=== PATIENT | male | born 1995 | race Caucasian/White ===

== ENCOUNTER 2022-11-30 09:26 | Emergency (ER) | payer SELFPAY ==
--- OUTSIDE RECORDS SUMMARY | 2022-11-30 09:32 | XMS REPORT | Continuity of Care Document ---
:1995 Author Organization [facility] t Address [address] [place] [address] Care Team Providers Name Role Phone PCP, PATIENT DOES NOT HAVE A Primary Care Physician UnavailANDREW Torres Attending Clinician Unavailable ANDREW ESPINOSA Attending Clinician Unavailable Andrew Espinosa DO Attending Clinician Iris Villegas Attending Clinician Unavailable JAVON VIDAL Attending Clinician Unavailable Javon Vidal MD Attending Clinician Chirag Gallegos MD Attending Clinician CHIRAG GALLEGOS Attending Clinician Unavailable Marcos Davis MD Attending Clinician Doctor Unassigned, [place] Attending Clinician Unavailable Jung Wallace MD Attending Clinician Dalia Morgan MD Attending Clinician Iris Villegas Admitting Clinician Unavailable ANDREW ESPINOSA Admitting Clinician Unavailable Dalia Morgan MD Admitting Clinician Payers Payer Name Policy Type Policy Number Effective Date Expiration Date [employer] [facility] [employer] GENER[employer] [id number] 2019 00:00:00 Problems Condition Condition Condition Status Onset Resolution Last Treating Co mments Source Name Details Category Date Date Treatment Clinician Date Drug abuse Drug abuse Disease Active U nivrust 07-04 ity of 00:00: [place] 00 Medical Branch Rhabdomyol Rhabdomyol Disease Active U nivers ysis ysis 8 ity of 00:00: [place] [facility] Aspiration Aspiration Disease Active U nivers pneumonia pneumonia 07-03 ity of 00:00: [place] [facility] Obesity Obesity Disease Active Univers (BMI (BMI 8- ity of 30-39.9) 30-39.9) 00:00: [place] [facility] JAVIER (acute JAVIER (acute Disease Active U nivers kidney kidney 8 ity of injury) injury) 00:00: [place] [id number] Medical Branch Adjustment Adjustment Disease Active 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 11-30 ity of [place] mixed [place] disturbanc disturbanc 00 Me dical e of e of Branch emotions emotions and and conduct conduct Allergies, Adverse Reactions, Alerts Allergy Allergy Status Severity Reaction(s) Onset Inactive Treating Comm ents Source Name Type Date Date Clinician No Known DA Active U [facility] Allergie 06-05 [place] 00:00: e 00 [facility] Azithrom Propensi Active Nausea Univer s ycin ty to and/or 07-04 ity of adverse Vomiting 00:00: [place] reaction 00 Medical s Branch AZITHROM DRUG Active N/V Univers YCIN INGREDI 07-04 ity of 00:00: [address] Social History Social Habit Start Date Stop Date Quantity Comments Source History of tobacco Cigarette Smoker University of use [facility] Tobacco Comment no one smokes in Uni versity of the home [facility] Exposure to 2022-08-03 2022-08-13 Not sure [facility] SARS-CoV-2 (event) 00:00:00 07:51:00 [facility] Alcohol intake 2015-10-12 2015-10-12 Current University of 00:00:00 00:00:00 non-drinker of [facility] alcohol Branch (finding) Tobacco use and 2013-01-20 2013-01-20 Smokeless Universit y of exposure 00:00:00 00:00:[address] tobacco non-user [facility] dical [place] Cigarettes smoked 2013-01-20 2013-01-20 Univers ity of current (pack per 00:00:00 00:00:00 [place] ) - Reported Branch [facility] 1995 [facility]00 [facility] Smoking Status Start Date Stop Date Source Occasional tobacco smoker 2013-01-20 00:00:[address] [facility] Medications Ordered Filled Start Stop Current Ordering Indication Dosage Frequency Signature Comments Components Source Medication Medication Date Date Medication? Clinician (SIG) Name Name famotidine No 20mg 20 mg, Univ ers (PEPCID 08-13 Slow IV ity of (PF)) 14:15: 13:22 Push, [place] injection 00 :00 ONCE, 1 Medical 20 mg dose, On Branch Uyen 08/13/22 at 0915, Routine NaCl 0.9% No 2000mL at 999 Uni vers (NS) bolus 08-13 mL/hr, ity of infusion 14:00: 14:00 2,000 mL, [place] 2,000 mL 00 :00 IV Medical Infusion, Branch ONCE, 1 dose, On Uyen 08/13/22 at 0900, RASHEED ondansetron 2021- No 4mg 4 mg, Slow Univers (ZOFRAN 08-13 IV Push, ity of (PF)) 13:30: 13:18 ONCE, 1 [place] injection 4 00 :00 dose, On Medi amor mg U[place] Branch 08/13/22 at 0830, ARSHEED maalox:diph 2021- No 15mL 15 mL, Uni vers enhydrAMINE 08-13 Oral, ity of :lidocaine 13:30: 13:22 ONCE, 1 [place] 2 % viscous 00 :00 dose, On Medi amor 1:1:1 [place] Branch (FIRST-MOUT 08/13/22 at [facility]) 0830, oral Routine suspension 15 mL ondansetron Yes [id number] 4mg Take 1 Univers (ZOFRAN) 4 -15 tablet by ity of mg tablet 00:00: mouth [place] 00 every 6 Medical (six) Branch hours as needed for Nausea and Vomiting (N/V). naloxone 2021- No .4mg 0.4 mg, Unive rs (NARCAN) 4-23 04-23 Slow IV ity of injection 02:15: 00:56 Push, [place] 0.4 mg 00 :00 ONCE, 1 Medical dose, On Branch 03/20/22 at 2115, Routine acetaminoph 2018- No 650mg 650 mg, U nivers en 07-05 Oral, ONCE ity of (TYLENOL) 15:45: 15:04 NOW, 1 [place] tablet 650 00 :00 dose, Wed Medi amor mg 07/05/19 at Branch 1045, Routine acetaminoph 2018- No 650mg 650 mg, U nivers en 07-05 Oral, ity of (TYLENOL) 00:40: 01:20 ONCE, 1 [place] tablet 650 00 :00 dose, Wed Medi amor mg 07/04/19 at Branch 1945, Routine amoxicillin 2018- No [id number] 500mg Take 1 Univers -pot 07-05 tablet by ity of clavulanate 00:00: 04:59 mouth 3 [place] 500 mg 00 :00 (three) Medical 500-125 mg times Branch tablet daily for 5 days. D5W 0.9% Yes 1000mL at 200 Unive rs NaCl (NS) 8-06 mL/hr, ity of IV infusion 13:45: 1,000 mL, [place] 1,000 mL 00 IV Medical Infusion, Branch CONTINUOUS , Starting e 07/04/19 at 0845, Until Discontinu ed, Routine D5W 0.9% 2018- No 1000mL at 100 Univ ers NaCl (NS) 8- 08-06 mL/hr, ity of IV infusion 12:15: 13:41 1,000 mL, [place] 1,000 mL 00 :07 IV Medical Infusion, Branch CONTINUOUS , Starting 07/04/19 at 0715, Until 07/04/19 at 0841, Routine D5W 0.9% 2018- No 1000mL at 200 Univ ers NaCl (NS) 8- 08-06 mL/hr, ity of IV infusion 11:30: 12:02 1,000 mL, [place] 1,000 mL 00 :21 IV Medical Infusion, Branch CONTINUOUS , Starting 07/04/19 at 0630, Until 07/04/19 at 0702, Routine amoxicillin 2019-0 Yes 500mg 500 mg, Un sabine -pot 806 Oral, TID, ity of clavulanate 01:00: First dose [place] 500 mg 00 on Wed Medical (AUGMENTIN 07/03/19 at Bran ch 500) 2000, 500-125 mg Until tablet 500 Discontinu mg ed, RASHEED
Re ason for Anti-Infec tive: Documented Infection< br>Documen sujata Infection Site: Respirator y
Durat ion of Therapy: 7 days D5W 0.9% 2019- No 1000mL at 150 Univ ers NaCl (NS) 8- 08-06 mL/hr, ity of IV infusion 00:45: 11:26 1,000 mL, [place] 1,000 mL 00 :49 IV Medical Infusion, Branch CONTINUOUS , Starting Wed07/03/19 at 1945, Until Wed07/04/19 at 0626, Routine NaCl 0.9% 2018- No 1000mL at 999 Uni vers (NS) bolus 805 08-05 mL/hr, ity of infusion 17:00: 16:20 1,000 mL, [place] 1,000 mL 00 :00 IV Medical Infusion, Branch ONCE, 1 dose, Wed07/03/19 at 1200, STAT NaCl 0.9% 2018- No 1000mL at 999 Uni vers (NS) bolus 8-05 08-05 mL/hr, ity of infusion 15:30: 15:56 1,000 mL, [place] 1,000 mL 00 :00 IV Medical Infusion, Branch ONCE, 1 dose, Wed07/03/19 at 1030, STAT propranolol 2014-11 Yes [id number] 80mg Take 1 Cap Univers [place] (INDERAL 1-13 by mouth ity of [place]) 80 mg 00:00: daily. [place] 24 hr Medical capsule Branch propranolol 2014-11 Yes [id number] 80mg Take 1 Cap Univers [place] (INDERAL 1-13 by mouth ity of [place]) 80 mg 00:00: daily. [place] hr Medical capsule Branch propranolol 2014-11 Yes [id number] 80mg Take 1 Cap Univers [place] (INDERAL 1-13 by mouth ity of [place]) 80 mg 00:00: daily. [place] 24 hr Medical capsule Branch propranolol 2014-11 Yes [id number] 80mg Take 1 Cap Univers [place] (INDERAL 1-13 by mouth ity of [place]) 80 mg 00:00: daily. [place] 24 hr 00 [facility] capsule Branch propranolol 2014- Yes [id number] 80mg Take 1 Cap Univers [place] (INDERAL 1-13 by mouth ity of [place]) 80 mg 00:00: daily. [place] 24 hr 00 [facility] capsule Branch propranolol 2014- Yes [id number] 80mg Take 1 Cap Univers [place] (INDERAL 1-13 by mouth ity of [place]) 80 mg 00:00: daily. [place] 24 hr 00 [facility] Branch Immunizations Ordered Immunization Filled Immunization Date Status Commen ts Source Name Name Chickenpox Disease 2008-07-10 Completed Univer sity of 00:00:00 [facility] Meningococcal 2008-07-10 Completed University of Polysaccharide 00:00:00 [place] Medi amor (groups A, C, Y and Branc h W-135) conjugate vaccine (MCV4P) Chickenpox Disease 2008-07-10 Completed Univer sity of 00:00:00 [facility] Meningococcal 2008-07-10 Completed University of Polysaccharide 00:00:00 [place] Medi amor (groups A, C, Y and Branc h W-135) conjugate vaccine (MCV4P) Chickenpox Disease 2008-07-10 Completed Univer sity of 00:00:00 [facility] Meningococcal 2008-07-10 Completed University of Polysaccharide 00:00:00 [place] Medi amor (groups A, C, Y and Branc h W-135) conjugate vaccine (MCV4P) Chickenpox Disease 2008-07-10 Completed Univer sity of 00:00:00 [facility] Meningococcal 2008-07-10 Completed University of Polysaccharide 00:00:00 [place] Medi amor (groups A, C, Y and Branc h W-135) conjugate vaccine (MCV4P) Chickenpox Disease 2008-07-10 Completed Univer sity of 00:00:00 [facility] Meningococcal 2008-07-10 Completed University of Polysaccharide 00:00:00 [place] Medi amor (groups A, C, Y and Branc h W-135) conjugate vaccine (MCV4P) Chickenpox Disease 2008-07-10 Completed Univer sity of 00:00:00 [facility] Meningococcal 2008-07-10 Completed University of Polysaccharide 00:00:00 [place] Medi amor (groups A, C, Y and Branc h W-135) conjugate vaccine (MCV4P) HEPATITIS A 2006-06-18 Completed University of 00:00:00 [facility] Branch Tdap 2006-06-18 Completed University of 00:00:00 [facility] HEPATITIS A 2006-06-18 Completed University of 00:00:00 [place] [facility] Tdap 2006-06-18 Completed University of 00:00:00 [facility] HEPATITIS A 2006-06-18 Completed University of 00:00:00 [place] [facility] Tdap 2006-06-18 Completed University of 00:00:00 [facility] Branch HEPATITIS A 2006-06-18 Completed University of 00:00:00 [place] [facility] TDAP 2006-06-18 Completed University of 00:00:00 [facility] Branch HEPATITIS A 2006-06-18 Completed University of 00:00:00 [place] [facility] TDAP 2006-06-18 Completed University of 00:00:00 [facility] HEPATITIS A 2006-06-18 Completed University of 00:00:00 [facility] Tdap 2006-06-18 Completed University of 00:00:00 [facility] HEPATITIS A 2004-06-19 Completed University of 00:00:00 [facility] PPD (TB) 2004-06-19 Completed University of 00:00:00 [facility] HEPATITIS A 2004-06-19 Completed University of 00:00:00 [facility] PPD (TB) 2004-06-19 Completed University of 00:00:00 [facility] HEPATITIS A 2004-06-19 Completed University of 00:00:00 [facility] PPD (TB) 2004-06-19 Completed University of 00:00:00 [facility] HEPATITIS A 2004-06-19 Completed University of 00:00:00 [facility] PPD (TB) 2004-06-19 Completed University of 00:00:00 [facility] HEPATITIS A 2004-06-19 Completed University of 00:00:00 [facility] PPD (TB) 2004-06-19 Completed University of 00:00:00 [facility] DTAP 1998-10-10 Completed University of 00:00:00 [facility] MMR 1998-10-10 Completed University of 00:00:00 [facility] Polio (IPV/OPV) 1998-10-10 Completed Universit y of 00:00:00 [facility] DTAP 1998-10-10 Completed University of 00:00:00 [facility] MMR 1998-10-10 Completed University of 00:00:00 [facility] Polio (IPV/OPV) 1998-10-10 Completed Universit y of 00:00:00 [facility] DTAP 1998-10-10 Completed University of 00:00:00 [facility] MMR 1998-10-10 Completed University of 00:00:00 [facility] Polio (IPV/OPV) 1998-10-10 Completed Universit y of 00:00:00 [facility] DTAP 1998-10-10 Completed University of 00:00:00 [facility] MMR 1998-10-10 Completed University of 00:00:00 [facility] Polio (IPV/OPV) 1998-10-10 Completed Universit y of 00:00:00 [facility] DTAP 1998-10-10 Completed University of 00:00:00 [facility] MMR 1998-10-10 Completed University of 00:00:00 [facility] Polio (IPV/OPV) 1998-10-10 Completed Universit y of 00:00:00 [facility] DTAP 1998-10-10 Completed University of 00:00:00 [facility] MMR 1998-10-10 Completed University of 00:00:00 [facility] Polio (IPV/OPV) 1998-10-10 Completed Universit y of 00:00:00 [facility] DTAP 1997-03-05 Completed University of 00:00:00 [facility] HIB 4 Dose Schedule 1997-03-05 Completed Unive rsity of 00:00:00 [facility] Polio (IPV/OPV) 1997-03-05 Completed Universit y of 00:00:00 [facility] DTAP 1997-03-05 Completed University of 00:00:00 [facility] HIB 4 Dose Schedule 1997-03-05 Completed Unive rsity of 00:00:00 [facility] Polio (IPV/OPV) 1997-03-05 Completed Universit y of 00:00:00 [facility] DTAP 1997-03-05 Completed University of 00:00:00 [facility] HIB 4 Dose Schedule 1997-03-05 Completed Unive rsity of 00:00:00 [facility] Polio (IPV/OPV) 1997-03-05 Completed Universit y of 00:00:00 [facility] DTAP 1997-03-05 Completed University of 00:00:00 [facility] HIB 4 Dose Schedule 1997-03-05 Completed Unive rsity of 00:00:00 [facility] Polio (IPV/OPV) 1997-03-05 Completed Universit y of 00:00:00 [facility] DTAP 1997-03-05 Completed University of 00:00:00 [facility] HIB 4 Dose Schedule 1997-03-05 Completed Unive rsity of 00:00:00 [facility] Polio (IPV/OPV) 1997-03-05 Completed Universit y of 00:00:00 [facility] DTAP 1997-03-05 Completed University of 00:00:00 [facility] HIB 4 Dose Schedule 1997-03-05 Completed Unive rsity of 00:00:00 [facility] Polio (IPV/OPV) 1997-03-05 Completed Universit y of 00:00:00 [facility] MMR 1996-01-10 Completed University of 00:00:00 [facility] 1996-01-10 Completed University of 00:00:00 [facility] 1996-01-10 Completed University of 00:00:00 [facility] 1996-01-10 Completed University of 00:00:00 [facility] 1996-01-10 Completed University of 00:00:00 [facility] 1996-01-10 Completed University of 00:00:00 [facility] Varicella 1995-10-08 Completed University of (varivax)(chicken 00:00:00 [place] M edical pox) Branch Varicella 1995-10-08 Completed University of (varivax)(chicken 00:00:00 [place] M [facility]ical pox) Branch Varicella 1995-10-08 Completed University of (varivax)(chicken 00:00:00 [place] M edical pox) Branch Varicella 1995-10-08 Completed University of (varivax)(chicken 00:00:00 [place] M edical pox) Branch Varicella 1995-10-08 Completed University of (varivax)(chicken 00:00:00 [place] M edical pox) Branch Varicella 1995-10-08 Completed University of (varivax)(chicken 00:00:00 [place] M edical pox) Branch DTP 1995-06-09 Completed University of 00:00:00 [facility] HIB 4 Dose Schedule 1995-06-09 Completed Unive rsity of 00:00:00 [facility] Polio (IPV/OPV) 1995-06-09 Completed Universit y of 00:00:00 [facility] DTP 1995-06-09 Completed University of 00:00:00 [facility] HIB 4 Dose Schedule 1995-06-09 Completed Unive rsity of 00:00:00 [facility] Polio (IPV/OPV) 1995-06-09 Completed Universit y of 00:00:00 [facility] DTP 1995-06-09 Completed University of 00:00:00 [facility] HIB 4 Dose Schedule 1995-06-09 Completed Unive rsity of 00:00:00 [facility] Branch Polio (IPV/OPV) 1995-06-09 Completed Universit y of 00:00:00 [facility] Branch DTP 1995-06-09 Completed University of 00:00:00 [facility] HIB 4 Dose Schedule 1995-06-09 Completed Unive rsity of 00:00:00 [facility] Polio (IPV/OPV) 1995-06-09 Completed Universit y of 00:00:00 [facility] DTP 1995-06-09 Completed University of 00:00:00 [facility] HIB 4 Dose Schedule 1995-06-09 Completed Unive rsity of 00:00:00 [facility] Polio (IPV/OPV) 1995-06-09 Completed Universit y of 00:00:00 [facility] DTP 1995-06-09 Completed University of 00:00:00 [facility] HIB 4 Dose Schedule 1995-06-09 Completed Unive rsity of 00:00:00 [facility] Polio (IPV/OPV) 1995-06-09 Completed Universit y of 00:00:00 [facility] DTP 1995-03-31 Completed University of 00:00:00 [facility] HIB 4 Dose Schedule 1995-03-31 Completed Unive rsity of 00:00:00 [facility] Hep B, Adol or Pedi 1995-03-31 Completed Unive rsity of Dosage 00:00:00 [facility] Polio (IPV/OPV) 1995-03-31 Completed Universit y of 00:00:00 [facility] DTP 1995-03-31 Completed University of 00:00:00 [facility] HIB 4 Dose Schedule 1995-03-31 Completed Unive rsity of 00:00:00 [facility] Hep B, Adol or Pedi 1995-03-31 Completed Unive rsity of Dosage 00:00:00 [facility] Polio (IPV/OPV) 1995-03-31 Completed Universit y of 00:00:00 [facility] DTP 1995-03-31 Completed University of 00:00:00 [facility] HIB 4 Dose Schedule 1995-03-31 Completed Unive rsity of 00:00:00 [facility] Hep B, Adol or Pedi 1995-03-31 Completed Unive rsity of Dosage 00:00:00 [facility] Polio (IPV/OPV) 1995-03-31 Completed Universit y of 00:00:00 [facility] DTP 1995-03-31 Completed University of 00:00:00 [facility] HIB 4 Dose Schedule 1995-03-31 Completed Unive rsity of 00:00:00 [facility] Branch Hep B, Adol or Pedi 1995-03-31 Completed Unive rsity of Dosage 00:00:00 [facility] Polio (IPV/OPV) 1995-03-31 Completed Universit y of 00:00:00 [facility] DTP 1995-03-31 Completed University of 00:00:00 [facility] HIB 4 Dose Schedule 1995-03-31 Completed Unive rsity of 00:00:00 [facility] Branch Hep B, Adol or Pedi 1995-03-31 Completed Unive rsity of Dosage 00:00:00 [facility] Polio (IPV/OPV) 1995-03-31 Completed Universit y of 00:00:00 [facility] DTP 1995-03-31 Completed University of 00:00:00 [facility] HIB 4 Dose Schedule 1995-03-31 Completed Unive rsity of 00:00:00 [place] [facility] Hep B, Adol or Pedi 1995-03-31 Completed Unive rsity of Dosage 00:00:00 [facility] Branch Polio (IPV/OPV) 1995-03-31 Completed Universit y of 00:00:00 [facility] DTP 1994 Completed University of 00:00:00 [facility] HIB 4 Dose Schedule 1994 Completed Unive rsity of 00:00:00 [facility] Branch Hep B, Adol or Pedi 1994 Completed Unive rsity of Dosage 00:00:00 [facility] Polio (IPV/OPV) 1994 Completed Universit y of 00:00:00 [facility] DTP 1994 Completed University of 00:00:00 [facility] HIB 4 Dose Schedule 1994 Completed Unive rsity of 00:00:00 [facility] Hep B, Adol or Pedi 1994 Completed Unive rsity of Dosage 00:00:00 [facility] Polio (IPV/OPV) 1994 Completed Universit y of 00:00:00 [facility] DTP 1994 Completed University of 00:00:00 [facility] HIB 4 Dose Schedule 1994 Completed Unive rsity of 00:00:00 [facility] Hep B, Adol or Pedi 1994 Completed Unive rsity of Dosage 00:00:00 [facility] Polio (IPV/OPV) 1994 Completed Universit y of 00:00:00 [facility] DTP 1994 Completed University of 00:00:00 [facility] HIB 4 Dose Schedule 1994 Completed Unive rsity of 00:00:00 [facility] Hep B, Adol or Pedi 1994 Completed Unive rsity of Dosage 00:00:00 [facility] Polio (IPV/OPV) 1994 Completed Universit y of 00:00:00 [facility] DTP 1994 Completed University of 00:00:00 [facility] HIB 4 Dose Schedule 1994 Completed Unive rsity of 00:00:00 [facility] Hep B, Adol or Pedi 1994 Completed Unive rsity of Dosage 00:00:00 [facility] Polio (IPV/OPV) 1994 Completed Universit y of 00:00:00 [facility] DTP 1994 Completed University of 00:00:00 [facility] HIB 4 Dose Schedule 1994 Completed Unive rsity of 00:00:00 [facility] Branch Hep B, Adol or Pedi 1994 Completed Unive rsity of Dosage 00:00:00 [facility] Polio (IPV/OPV) 1994 Completed Universit y of 00:00:00 [facility] Hep B, Adol or Pedi 1994 Completed Unive rsity of Dosage 00:00:00 [facility] Hep B, Adol or Pedi 1994 Completed Unive rsity of Dosage 00:00:00 [facility] Hep B, Adol or Pedi 1995 Completed Unive rsity of Dosage 00:00:00 [facility] Hep B, Adol or Pedi 1995 Completed Unive rsity of Dosage 00:00:00 [facility] Hep B, Adol or Pedi 1995 Completed Unive rsity of Dosage 00:00:00 [facility] Hep B, Adol or Pedi 1995 Completed Unive rsity of Dosage 00:00:00 [facility] Vital Signs Vital Name Observation Time Observation Value Comments Source Systolic blood 2022-08-13 16:00:00 128 mm[Hg] Univer sity of pressure [facility] Diastolic blood 2022-08-13 16:00:00 81 mm[Hg] Unive rsity of pressure [facility] Heart rate 2022-08-13 16:00:00 74 /min [facility] Respiratory rate 2022-08-13 16:00:00 17 /[facility] in 2022-08-13 16:00:00 99 /min [facility] blood by [facility] Pulse oximetry [place] Body height 2022-08-13 12:53:00 157.5 cm [facility] Body temperature 2022-08-13 12:52:00 36.61 Dedra [facility] Body weight 2022-08-13 12:52:00 79.379 kg [facility] BMI 2022-08-13 12:52:00 32.01 kg/m2 [facility] Systolic blood 2022-03-21 05:30:00 113 mm[Hg] Univer sity of pressure [facility] Diastolic blood 2022-03-21 05:30:00 71 mm[Hg] Unive rsity of pressure [facility] Heart rate 2022-03-21 05:30:00 74 /min [facility] Res[facility] rate 2022-03-21 05:30:00 18 /min [facility] Oxygen saturation in 2022-03-21 05:30:00 100 /min [facility] of Arterial blood by [facility] Pulse oximetry Branch Body temperature 2022-03-21 02:30:00 37 Dedra Univ ers[facility] Body weight 2022-03-21 00:15:00 72.576 kg [facility] BMI 2022-03-21 00:15:00 28.34 kg/m2 [facility] Systolic blood 2019-08-13 04:55:00 127 mm[Hg] Univer sity of pressure [facility] Diastolic blood 2019-08-13 04:55:00 86 mm[Hg] Unive rsity of pressure [facility] Heart rate 2019-08-13 04:55:00 82 /min [facility] [place] Body temperature 2019-08-13 04:55:00 36.28 Dedra [facility] Respiratory rate 2019-08-13 04:55:00 20 /min [facility] Body weight 2019-08-13 04:55:00 79.833 kg [facility] BMI 2019-08-13 04:55:00 31.18 kg/m2 [facility] Oxygen saturation in 2019-08-13 04:55:00 100 /min [facility] Arterial blood by [facility] Pulse oximetry Branch Systolic blood 2019-07-05 16:28:00 117 mm[Hg] Univer sity of pressure [facility] Diastolic blood 2019-07-05 16:28:00 54 mm[Hg] Unive rsity of pressure [facility] Heart rate 2019-07-05 16:28:00 57 /min [facility] [place] Body temperature 2019-07-05 16:28:00 36.44 Dedra Univ [facility] Respiratory rate 2019-07-05 16:28:00 20 /min Univ [facility] Oxygen saturation in 2019-07-05 16:28:00 99 /min [facility] Arterial blood by [facility] Pulse oximetry Branch Body weight 2019-07-05 08:45:00 83.961 kg [facility] BMI 2019-07-05 08:45:00 32.79 kg/m2 [facility] Body height 2019-07-03 21:55:00 160 cm [facility] Procedures Procedure Date / Time Performing Clinician Source Performed HEPATIC FUNCTION PANEL 2022-08-13 15:10:00 Francisca, [facility] ([id number]) (ALB,T.PRO,BILI Medical Branch T,BU/BC,ALT,AST,ALK PHOS) BASIC METABOLIC PANEL 2022-08-13 15:10:00 Francisca [facility] (NA, K, CL, CO2, Medical Branch GLUCOSE, BUN, CREATININE, CA) URINALYSIS 2022-08-13 13:36:00 Francisca [facility] LIPASE 2022-08-13 13:16:00 [facility]isc[facility] CBC WITH DIFF 2022-08-13 13:16:00 Francisca, [facility] COVID-19 (ID NOW RAPID 2022-08-13 13:16:00 Francisca, [facility] TESTING) Medical Branch CONSENT/REFUSAL FOR 2022-08-13 12:53:36 Doctor Unassigned, No Un [facility] DIAGNOSIS AND TREATMENT Name Medical Branch BASIC METABOLIC PANEL 2022-03-21 01:34:00 [facility] ([facility], K, CL, CO2, Medical Branch GLUCOSE, BUN, CREATININE, CA) CBC WITH DIFF 2022-03-21 01:34:00 Javon Vidal [facility] CREATINE KINASE 2019-07-05 09:51:00 [place] BASIC METABOLIC PANEL 2019-07-05 09:51:00 [facility] (NA, K, CL, CO2, Medical Branch GLUCOSE, BUN, CREATININE, CA) CBC WITH DIFFERENTIAL 2019-07-05 09:50:00 [place] [facility] CREATINE KINASE 2019-07-04 19:16:00 Ana Olivo [facility] CREATINE KINASE 2019-07-04 11:38:00 Kellogg, [facility] Medical [place] MAGNESIUM 2019-07-04 05:24:00 [facility] BASIC METABOLIC PANEL 2019-07-04 05:24:00 Edwar [facility] (NA, K, CL, CO2, Medical Branch GLUCOSE, BUN, CREATININE, CA) CBC WITH DIFFERENTIAL 2019-07-04 05:24:00 Akshat [facility] LACTIC ACID WHOLE BLOOD 2019-07-04 05:23:00 Edwar [facility] BLOOD CULTURE SCREEN 2019-07-04 01:08:00 Edwar [facility] LACTIC ACID WHOLE BLOOD 2019-07-04 00:59:00 Edwar [facility] BLOOD CULTURE SCREEN 2019-07-04 00:59:00 Edwar [facility] MYOGLOBIN URINE PANEL 2019-07-04 00:35:00 KelloggAkshat [facility] CREATINE KINASE 2019-07-03 22:30:[address] [facility] BASIC METABOLIC PANEL 2019-07-03 22:30:00 luis [facility] (NA, K, CL, CO2, Medical Branch GLUCOSE, BUN, CREATININE, CA) LACTIC ACID WHOLE BLOOD 2019-07-03 22:29:00 Madison [facility] GALV/CLC ONLY - URINE 2019-07-03 19:43:00 Jung Wallace [facility] DRUG (IMMUNOASSAY) - Medical Bra [facility] COMPREHENSIVE DRUG SCREEN ACUTE CARE ARTERIAL 2019-07-03 17:46:00 Jung Wallace [facility] BLOOD GAS Medical Branch POTASSIUM SERUM 2019-07-03 16:33:00 Madison Jung Milla [facility] CREATINE KINASE 2019-07-03 15:55:00 Madison [facility] COMP. METABOLIC PANEL 2019-07-03 15:55:00 Jung Wallace [facility] ([id number]) [facility] SALICYLATE 2019-07-03 15:55:00 Jung Wallace [facility] ETHANOL 2019-07-03 15:55:00 Madison [facility] AC ABG + LACTIC ACID 2019-07-03 15:34:00 Jung Wallace [facility] CT HEAD WO CONTRAST 2019-07-03 15:30:04 [facility] EKG-12 LEAD 2019-07-03 15:02:25 Jung Wallace [facility] XR CHEST 1 VW 2019-07-03 14:51:16 Jung Wallace [facility] CBC WITH DIFFERENTIAL 2019-07-03 14:25:00 [facility] [place] [place] EXTRA TUBE LT. GREEN 2019-07-03 14:25:00 Jung Wallace [facility] HOSPITAL ADMISSION 2019-07-03 05:01:00 Doctor Unassigned, No Uni versity of [facility] Encounters Start End Encounter Admission Attending Care Care Encounter Source Date/Time Date/Time Type Type Clinicians Facility Department ID 2022-08-13 2022-08-13 Emergency X FRANCISCA ANDREW [facility] ERT 1 [id number] Univers 07:54:00 11:18:00 ANDREW ESPINOSA [facility] 2022-08-13 2022-08-13 Emergency Francisca, TRAUMA [id number] Univers 07:54:00 11:18:00 [facility] [place].1.13.10 [id number] [address] 2022-06-05 2022-06-06 Inpatient EM Polavarapu, [facility] [id number] [facility] 18:50:00 00:11:[address] [facility] 2022-06-05 2022-06-05 Inpatient EM Polavarapu, [facility] [id number] [facility] 18:50:00 18:49:[id number] [facility] 2022-03-20 2022-03-21 Emergency X MORRICAL, [facility] ERT [id number] Univers 19:17:00 01:36:00 JAVON [facility] 2022-03-20 2022-03-21 Emergency Morrical, TRAUMA [id number] Univers 19:17:00 01:36:00 Javon Cali C[place]1.13.[place] [id number] [address] 2020-04-28 2020-04-28 Emergency X ANDREW ESPINOSA [facility] ERT 1 [id number] Univers 08:07:23 13:00:00 ANDREW ESPINOSA ity of [facility] 2020-03-27 2020-03-27 Emergency El, TRAUMA [id number] Univers 23:07:52 23:37:00 Chirag Almanza CENTER [place]1.13.[place] [id number] [address] 2020-03-27 2020-03-27 Emergency X EL, [facility] ERT [id number] Univers 23:07:52 23:07:52 CHIRAG meliay [facility] 2019-08-12 2019-08-13 Emergency Harkey, TRAU[place] [id number] Univers 23:59:20 00:30:00 Marcos Purvis CENTER [place]1.13.10 [place] [id number] [address] 2019-07-06 2019-07-06 Patient Doctor CONCETTA [id number] Univers 00:00:00 00:00:00 Secure Msg Unassigned, YEISON 350.1.13.10 ity of [place] [facility] 4.2.7.2.686 Saman as [id number] [address] 2019-07-03 2019-07-05 Hospital Jung Wallace 1.2.840.1 [id number] Univers 09:16:09 13:22:00 Encounter Dalia Morgan 350.1.13.10 ity of [facility] 4.2.7.2.686 [place] [id number] [address] Results Test Description Test Time Test Comments Results Result Comments Source BASIC METABOLIC PANEL (NA, K, CL, CO2, GLUCOSE, BUN, 2022-07 15:37:00 CREATININE, CA) Test Item Value Reference Range Interpretation Comme nts NA (test code = 6957552983) 136 mmol/L 135-145 K (test code = 2044715043) 4.9 mmol/L 3.5-5 S light hemolysis CL (test code = 3516464363) 103 mmol/L 98-108 CO2 TOTAL (test code = 28 mmol/L 23-31 4689825748) AGAP (test code = 2-16 0277203368) BUN (test code = 11 mg/dL 7-23 Slight hemo lysis 3783680294) GLUCOSE (test code = 93 mg/dL 70-110 1093590947) CREATININE (test code = 1.42 mg/dL 0.6-1.25 H 7736994146) CALCIUM (test code = 8.8 mg/dL 8.6-10.6 5987363447) eGFR (test code = mL/min/1.73m2 9967465060) KARLENE (test code = KARLENE) Association of Glomerular Filtration Rate (GFR) and Staging of Kidney Disease* + + +--- +| GFR (mL/min/1.73 m2) ?| With Kidney Damage ?| ?Without Kidney Damage+ -----+ --+ ---+| ?>90 ?| ?Stage one ?| ? Normal ?+ + +-- +| ?60-89 ?| ?Stage two ?| ? Decreased GFR ? + + +--- +| ?30-59 ?| ?Stage three ?| ? Stage three ? + + +--- +| ?15-29 ?| ?Stage four ? | ? Stage four ?+ + +-- +| ?<15 (or dialysis) ? ?| ?Stage five ? | ? Stage five ?+ + +-- + *Each stage assumes the associated GFR level has been in effect for at least three months. ?Stages 1 to 5, with or without kidney disease, indicate chronic kidney disease. Notes: Determination of stages one and two (with eGFR >59mL/min/1.73 m2) requires estimation of kidney damage for at least three months as defined by structural or functional abnormalities of the kidney, manifested by either:Pathological abnormalities or Markers of kidney damage (including abnormalities in the composition of the blood or urine or abnormalities in imaging tests). Lab Interpretation (test Abnormal code = 53222-9) [facility] (ALB,T.PRO,BILI T,BU/BC,ALT,AST,ALK PHOS)2022-08-13 15:37:00 Test Item Value Reference Range Interpretation Comments TOTAL BILI (test code = 3380667547) 0.6 mg/dL 0.1-1.1 BILI UNCON (test code = 4393391326) 0.3 mg/dL 0.1-1.1 BILI CONJ (test code = 8009528382) 0.0 mg/dL 0-0.3 T PROTEIN (test code = 3611998588) 7.6 g/dL 6.3-8.2 ALBUMIN (test code = 9024322006) 4.6 g/dL 3.5-5 ALK PHOS (test code = 6340860475) 74 U/L 34-122 ALTv (test code = 1742-6) 27 U/L 5-50 AST(SGOT) (test code = 0144351661) 40 U/L 13-40 Lab Interpretation (test code = Normal 77829-8) [facility] 13:39:47 Test Item Value Reference Range Interpretation Comments LIPASE (test code = 2994696625) 135 U/L 0-220 Lab Interpretation (test code = Normal 22012-7) [facility] WITH [id number] 13:34:24 Test Item Value Reference Range Interpretation Comments WBC (test code = See_Comment [Automated message] 6690-2) The system [employer] generated this result transmitted ref erence range: 4.20 - 1 0.70 10*3/?L. The re ference range was not u sed to interpret this result as normal/abnor mal. RBC (test code = See_Comment [Automated message] 789-8) The system [employer] generated this result transmitted ref erence range: 4.26 - 5 .52 10*6/?L. The re ference range was not u sed to interpret this result as normal/abnor mal. HGB (test code = 16.0 g/dL 12.2-16.4 718-7) HCT (test code = 47.1 % 38.4-49.3 4544-3) MCV (test code = 88.7 fL 81.7-95.6 787-2) MCH (test code = 30.1 pg 26.1-32.7 785-6) MCHC (test code = 34.0 g/dL 31.2-35 786-4) RDW-SD (test code 42.3 fL 38.5-51.6 = 38396-3) RDW-CV (test code 13.1 % 12.1-15.4 = 788-0) PLT (test code = See_Comment [Automated message] 777-3) The system whic h generated this result transmitted ref erence range: 150 - 32 8 10*3/?L. The re ference range was not u sed to interpret this result as normal/abnor mal. MPV (test code = 11.4 fL 9.8-13 66279-1) NRBC/100 WBC (test See_Comment [Automat ed message] code = 8317609750) The syste m which generated this result transmitted ref erence range: 0.0 - 10 .0 /100 WBCs. The refer ence range was not u sed to interpret this result as normal/abnor mal. NRBC x10^3 (test See_Comment [Automated message] code = 4080888479) The syste m which generated this result transmitted ref erence range: 10*3/?L. The reference range was not used to interpr et this result as normal/abnormal . GRAN MAT (NEUT) % 68.7 % (test code = 770-8) IMM GRAN % (test 0.80 % code = 7207538580) LYMPH % (test code 21.2 % = 736-9) MONO % (test code 7.1 % = 5905-5) EOS % (test code = 1.4 % 713-8) BASO % (test code 0.8 % = 706-2) GRAN MAT 5.39 10*3/uL 1.99-6.95 x10^3(ANC) (test code = 8308964524) IMM GRAN x10^3 0.06 10*3/uL 0-0.06 (test code = 1674838122) LYMPH x10^3 (test 1.66 10*3/uL 1.09-3.23 code = 731-0) MONO x10^3 (test 0.56 10*3/uL 0.36-1.02 code = 742-7) EOS x10^3 (test 0.11 10*3/uL 0.06-0.53 code = 711-2) BASO x10^3 (test 0.06 10*3/uL 0.01-0.09 code = 704-7) [facility] XR CHEST 1 [id number] 21:07:00 [facility] 1995 Sex: M FAX: James Hernandez MD [phone] [place]: B St: REG Name: MACHELLE DE LA CRUZ [facility] : 1995 Age/S: 26/M [address] [facility] Unit #: [id number] Loc: [place] [address] Phys: James Hernandez MD Acct: [id number] Dis Date: Status: REG ER PHONE #: [phone] Exam Date: 06/05/20222054 FAX #: [phone] Reason: cough EXAMS: CPT CODE: [id number] XR CHEST 1 V 34314 REASON FOR EXAM: cough Exam Order Date: 06/05/2022 8:36 PM Ordering Mckayla: James Hernandez MD PROCEDURE: - XR CHEST 1 V COMPARISON: None FINDINGS: The lungs are clear. There is no pleural effusion or pneumothorax. Pulmonary vascularity is within normal limits. Cardiomediastinal silhouette is normal in size for technique. The mediastinal contours are within normal limits. Musculoskeletal structures are within normal limits. The visualized upper abdomen is within normal limits. IMPRESSION: No acute cardiopulmonary process. Location: at 2106 Reported and signed by: Gavin Song M.D. CC: James Hernandez MD Technologist: RT GERSON(R) Trnscrd Date/Time/By: 06/05/2022 (2106) : By:[email or web address] Orig Print D/T: S: 06/05/2022 (2109) PAGE 1 Signed ReportCBC W/O [id number] 20:42:00 Test Item Value Reference Range Interpretation Comments WHITE BLOOD CELL (test code = 10.1 K/mm3 4.5-12.5 N WBC) RED BLOOD CELL (test code = 4.99 mill/mm3 4.0-5.8 N RBC) HEMOGLOBIN (test code = HGB) 14.6 gram/dL 13.0-17.5 N HEMATOCRIT (test code = HCT) 44.3 % 42.0-52.0 N MEAN CELL VOLUME (test code = 88.8 fL 80-98 N MCV) MEAN CELL HGB (test code = MCH) 29.3 picogram 27.0-33.0 N MEAN CELL HGB CONCETRATION 33.0 gram/dL 33.0-36.0 N (test code = MCHC) RED CELL DISTRIBUTION WIDTH 13.1 % 11.6-16.2 N (test code = RDW) PLATELET COUNT (test code = 259 K/mm3 150-450 N PLT) MEAN PLATELET VOLUME (test code 11.4 fL 6.7-11.0 H = MPV) - CT HEAD/BRAIN W/O [id number] 20:35:00 [facility]Name: MACHELLE DE LA CRUZ : 1995 Sex: M Name: MACHELLE DE LA CRUZ [facility] : 1995 Age/S: 26 / M [address] [facility] [id number] Loc: [place] [address] Phys: James Hernandez MD Acct: [id number] Dis Date: Status: REG ER PHONE #: [phone] Exam Date: 06/05/20222025 FAX #: [phone] Reason: ams EXAMS: CPT CODE: [id number] CT HEAD/BRAIN W/O CONT 44231 HISTORY: ams TECHNIQUE: Noncontrast 2.[address] of the head. Exa mination acquired within 24 hours of arrival. Automated exposure control for dose reduction. COMPARISON: None FINDINGS: No lacerations or contusions of the scalp or facial soft tissues. Calvarium and skull base are intact. No acte or chronic infarct. No effacement of the sulci or marcus-white matter interface. No acute hemorrhage. No intracranial mass, mass effect, or midline shift. No cortical atrophy. No signs of white matter small-vessel disease. No hydrocephalus.. No extra-axial fluid collection. Visualized paranasal sinuses are clear. Mastoid air cells and middle ear cavities are clear. Orbital contents are unremarkable. IMPRESSION: Negative CT head. Location: at 2034 Reported and signed by: Gavin Song M.D. CC: James Hernandez MD Technologist:BOBBY ROBBINS, RT(R) CT CTDI: DLP: Trnscb Date/Time: 06/05/2022 (2034) [email or web address] OrigPrint D/T: S: 06/05/2022 (2037) PAGE 1 Signed ReportBASIC METABOLIC [id number] 20:23:00 Test Item Value Reference Range Interpretation Comments SODIUM (test code = 133 mmol/L 136-145 L NA) POTASSIUM (test code 3.4 mmol/L 3.5-5.1 L = K) CHLORIDE (test code = 99.0 mmol/L 98-107 N CL) CARBON DIOXIDE (test 26.0 mmol/L 21-32 N code = CO2) ANION GAP (test code 11.4 10-20 N = GAP) GLUCOSE (test code = 104 mg/dL 74-106 N GLU) BLOOD UREA NITROGEN 14 mg/dL 7-18 N (test code = BUN) GLOMERULAR FILTRATION > 60 mL/min See_Comment Estima sujata GFR by RATE (test code = using Cristino fied MDRD GFR) formula.Chronic kidney disease is defined as eith er kidney damageor GFR <60 mL/min/1.73 m2 for >3 months. [Automated mess age] The system [employer] generated this result transmitted ref erence range: >=60. Th e reference range was not used to int erpret this result as normal/abnormal . CREATININE (test code 1.00 mg/dL 0.7-1.3 N = CREAT) BUN/CREATININE RATIO 14.3 10-20 N (test code = BUN/CREA) CALCIUM (test code = 9.4 mg/dL 8.5-10.1 N CA) HEPATIC FUNCTION [id number] 20:23:00 Test Item Value Reference Range Interpretation Comments TOTAL PROTEIN (test 7.2 gram/dL 6.4-8.2 N code = PROT) ALBUMIN (test code = 4.1 g/dL 3.4-5.0 N ALB) GLOBULIN (test code = 3.1 gram/dL 2.7-4.2 N GLOB) ALBUMIN/GLOBULIN RATIO 1.3 0.75-1.50 N (test code = A/G) BILIRUBIN TOTAL (test 0.40 mg/dL 0.0-1.0 N code = BILT) BILIRUBIN DIRECT (test 0.10 mg/dL 0.0-0.20 N code = BILD) SGOT/AST (test code = 29 IUnit/L 15-37 N AST) SGPT/ALT (test code = 23 IUnit/L 12-78 N ALT) ALKALINE PHOSPHATASE 89 IUnit/L 45-117 N Note change in TOTAL (test code = reference range due ALKP) to change in reagent. [id number] 20:23:00 Test Item Value Reference Range Interpretation Comments ACETAMINOPHEN (test code < 0.2 mg/dL 1.0-3.0 L CAU TION: TO = ACET) CONVERT FROM MG /DL TO MCG/ML MULTI PLY RESULT [id number] 20:23:00 Test Item Value Reference Range Interpretation Comments SALICYLATE (test code = LAURIE) < 3.0 mg/dL 2.8-20.0 N [id number] 20:23:00 Test Item Value Reference Range Interpretation Comments ALCOHOL (test code < 3 mg/dL 0.0-3.0 N --------- --------INTERPRE = ALC) TIVE DATA NOTE: POSITIVE SCREEN ING RESULTS SHOULD BE CONSIDERED PRESUMPTIVE.WHE N COLLECTED FOR M EDICAL PURPOSES ONLY. SPECIMEN WILL NOTBE JACK ECTED BY CHAIN OF CUSTOD Y.IF A CONFIRMATION OF POSITIVE RESULTS IS MARCELINA RED, ACONFIRMATION T EST MUST BE REQUESTED BY THE PHYSICIAN AT AN ADDITIONAL CHARGE TO THE P ATIENT. BASIC METABOLIC PANEL (NA, K, CL, CO2, GLUCOSE, BUN, CREATININE, CA)2022-03-21 01:54:39 Test Item Value Reference Range Interpretation Comments NA (test code = 138 mmol/L 135-145 7308317509) K (test code = 4.1 mmol/L 3.5-5.0 Slight hemoly sis 2447561230) CL (test code = 107 mmol/L 98-108 3108351014) CO2 TOTAL (test 24 mmol/L 23-31 code = 6905397648) AGAP (test code = 2-16 0185299707) BUN (test code = 16 mg/dL 7-23 Slight hemo lysis 2738752853) GLUCOSE (test code 77 mg/dL 70-110 = 8806345720) CREATININE (test 0.71 mg/dL 0.60-1.25 code = 0776516880) CALCIUM (test code 8.8 mg/dL 8.6-10.6 = 7605363468) eGFR (test code = mL/min/1.73m2 4636123665) KARLENE (test code = Association of KARLENE) Glomerular Filtration Rate (GFR) and Staging of Kidney Disease* + ----+ ------+ +| GFR (mL/min/1.73 m2) ?| With Kidney Damage ?| ?Without Kidney Damage+ +--------- +------- +| ?>90 ?| ?Stage one ?| ? Normal ?+ -----+ -------+ +| ?60-89 ?| ?Stage two ?| ? Decreased GFR ? + ----+ ------+ +| ?30-59 ?| ?Stage three ?| ? Stage three ? + ----+ ------+ +| ?15-29 ?| ?Stage four ? | ? Stage four ?+ -----+ -------+ +| ?<15 (or dialysis) ? ?| ?Stage five ? | ? Stage five ?+ -----+ -------+ + *Each stage assumes the associated GFR level has been in effect for at least three months. ?Stages 1 to 5, with or without kidney disease, indicate chronic kidney disease. Notes: Determination of stages one and two (with eGFR >59mL/min/1.73 m2) requires estimation of kidney damage for at least three months as defined by structural or functional abnormalities of the kidney, manifested by either:Pathological abnormalities or Markers of kidney damage (including abnormalities in the composition of the blood or urine or abnormalities in imaging tests). [facility] WITH [id number] 01:41:54 Test Item Value Reference Range Interpretation Comments WBC (test code = See_Comment [Automated message] 6690-2) The system [employer] generated this result transmitted ref erence range: 4.20 - 1 0.70 10*3/?L. The re ference range was not u sed to interpret this result as normal/abnor mal. RBC (test code = See_Comment [Automated message] 789-8) The system [employer] generated this result transmitted ref erence range: 4.26 - 5 .52 10*6/?L. The re ference range was not u sed to interpret this result as normal/abnor mal. HGB (test code = 13.5 g/dL 12.2-16.4 718-7) HCT (test code = 40.1 % 38.4-49.3 4544-3) MCV (test code = 88.9 fL 81.7-95.6 787-2) MCH (test code = 29.9 pg 26.1-32.7 785-6) MCHC (test code = 33.7 g/dL 31.2-35.0 786-4) RDW-SD (test code 42.4 fL 38.5-51.6 = 74563-0) RDW-CV (test code 13.1 % 12.1-15.4 = 788-0) PLT (test code = See_Comment [Automated message] 777-3) The system [employer] generated this result transmitted ref erence range: 150 - 32 8 10*3/?L. The re ference range was not u sed to interpret this result as normal/abnor mal. MPV (test code = 11.0 fL 9.8-13.0 39953-0) NRBC/100 WBC (test See_Comment [Automat ed message] code = 0167697200) The syste m which generated this result transmitted ref erence range: 0.0 - 10 .0 /100 WBCs. The refer ence range was not u sed to interpret this result as normal/abnor mal. NRBC x10^3 (test <0.01 See_Comment [Automated message] code = 5081119268) The syste m which generated this result transmitted ref erence range: 10*3/?L. The reference range was not used to interpr et this result as normal/abnormal . GRAN MAT (NEUT) % 61.4 % (test code = 770-8) IMM GRAN % (test 0.30 % code = 9042580159) LYMPH % (test code 23.8 % = 736-9) MONO % (test code 12.5 % = 5905-5) EOS % (test code = 1.6 % 713-8) BASO % (test code 0.4 % = 706-2) GRAN MAT 4.31 10*3/uL 1.99-6.95 x10^3(ANC) (test code = 9860795838) IMM GRAN x10^3 <0.03 0.00-0.06 (test code = 7885502682) LYMPH x10^3 (test 1.67 10*3/uL 1.09-3.23 code = 731-0) MONO x10^3 (test 0.88 10*3/uL 0.36-1.02 code = 742-7) EOS x10^3 (test 0.11 10*3/uL 0.06-0.53 code = 711-2) BASO x10^3 (test 0.03 10*3/uL 0.01-0.09 code = 704-7) [facility]CRE[facility] [id number] 12:00:00 Test Item Value Reference Range Interpretation Comments CK (test code = 9312294017) 6910 U/L 33-194 H Lab Interpretation (test code = Abnormal 01300-8) [facility] (NA, K, CL, CO2, GLUCOSE, BUN, CREATININE, CA)2019-07-05 10:40:00 Test Item Value Reference Range Interpretation Comments NA (test code = 139 mmol/L 135-145 0162464013) K (test code = 3.8 mmol/L 3.5-5 9465659265) CL (test code = 110 mmol/L 98-108 H 1096501509) CO2 TOTAL (test code = 25 mmol/L 23-31 7372807578) AGAP (test code = 2-16 0562444285) BUN (test code = 10 mg/dL 7-23 1617148881) GLUCOSE (test code = 107 mg/dL 70-110 1483035105) CREATININE (test code = 0.69 mg/dL 0.6-1.25 0413723689) CALCIUM (test code = 8.3 mg/dL 8.6-10.6 L 4328904338) eGFR Calculation mL/min/1.73m2 (Non-) (test code = 6923020123) eGFR Calculation mL/min/1.73m2 () (test code = 0004514652) KARLENE (test code = KARLENE) Association of Glomerular Filtration Rate (GFR) and Staging of Kidney Disease*+ + + +| GFR (mL/min/1.73 m2)?| With Kidney Damage?|?Without Kidney Damage+ --------+ --------+ +|?>90?|?S tanishae one?|? Normal?+ ---------+ ---------+ +|?60-89? |?Stage two?|? Decreased GFR? + --+ --+ ------+|?30-59?|?Stage three?|? Stage three? + --+ --+ ------+|?15-29?|?Stage four? |? Stage four?+ -------+ -------+ +|?<15 (or dialysis)?|?Stage five? |? Stage five?+ -------+ -------+ +*Each stage assumes the associated GFR level has been in effect for at least three months.?Stages 1 to 5, with or without kidney disease, indicate chronic kidney disease.Notes: Determination of stages one and two (with eGFR >59mL/min/1.73 m2) requires estimation of kidney damage for at least three months as defined by structural or functional abnormalities of the kidney, manifested by either:Pathological abnormalities or Markers of kidney damage (including abnormalities in the composition of the blood or urine or abnormalities in imaging tests). Lab Interpretation Abnormal (test code = 50103-7) [facility] WITH [id number] 10:03:00 Test Item Value Reference Range Interpretation Comments WBC (test code = See_Comment H [Automated 1490-2) message] The sy stem which generated this result transmitted reference range : 4.20 - 10.70 10*3/?L. The reference range was not used to interpret this result as normal/abnormal . RBC (test code = See_Comment [Automated 879-8) message] The sy stem which generated this result transmitted reference range : 4.26 - 5.52 10*6/?L. The reference range was not used to interpret this result as normal/abnormal . HGB (test code = 13.0 g/dL 12.2-16.4 718-7) HCT (test code = 38.3 % 38.4-49.3 L 4544-3) MCV (test code = 88.2 fL 81.7-95.6 787-2) MCH (test code = 30.0 pg 26.1-32.7 785-6) MCHC (test code = 33.9 g/dL 31.2-35 786-4) RDW-SD (test code = 41.6 fL 38.5-51.6 81814-5) RDW-CV (test code = 12.9 % 12.1-15.4 788-0) PLT (test code = See_Comment [Automated 777-3) message] The sy stem which generated this result transmitted reference range : 150 - 328 10*3/ ?L. The reference r kalyn was not used to interpret this result as normal/abnormal . MPV (test code = 10.9 fL 9.8-13 73617-4) NRBC/100 WBC (test See_Comment [Automat ed code = 1711915091) message] The system which generated this result transmitted reference range : 0.0 - 10.0 /100 WBCs. The refer ence range was not u sed to interpret th is result as normal/abnormal . NRBC x10^3 (test code <0.01 See_Comment [Auto mated = 8456271460) message] The s ystem which generated this result transmitted reference range : 10*3/?L. The reference range was not used to interpret this result as normal/abnormal . GRAN MAT (NEUT) % 69.1 % (test code = 770-8) IMM GRAN % (test code 0.60 % = 4120754326) LYMPH % (test code = 20.8 % 736-9) MONO % (test code = 8.9 % 5905-5) EOS % (test code = 0.4 % 713-8) BASO % (test code = 0.2 % 706-2) GRAN MAT x10^3(ANC) 7.50 10*3/uL 1.99-6.95 H (test code = 5401413731) IMM GRAN x10^3 (test 0.06 10*3/uL 0-0.06 code = 4664670149) LYMPH x10^3 (test code 2.26 10*3/uL 1.09-3.23 = 731-0) MONO x10^3 (test code 0.97 10*3/uL 0.36-1.02 = 742-7) EOS x10^3 (test code = 0.04 10*3/uL 0.06-0.53 L 711-2) BASO x10^3 (test code <0.03 0.01-0.09 = 704-7) Lab Interpretation Abnormal (test code = 85970-6) [facility] [id number] 21:35:00 Test Item Value Reference Range Interpretation Comments CK (test code = 4636360823) 07188 U/L 33-194 H Lab Interpretation (test code = Abnormal 64682-5) [facility] [id number] 13:19:00 Test Item Value Reference Range Interpretation Comments CK (test code = 4358885738) 9445 U/L 33-194 H Lab Interpretation (test code = Abnormal 04549-8) [facility] METABOLIC PANEL (NA, K, CL, CO2, GLUCOSE, BUN, CREATININE, CA)2019-07-04 09:56:00 Test Item Value Reference Range Interpretation Comments NA (test code = 137 mmol/L 135-145 8241140496) K (test code = 4.2 mmol/L 3.5-5 1667802877) CL (test code = 102 mmol/L 98-108 4878923098) CO2 TOTAL (test code = 29 mmol/L 23-31 4370079279) AGAP (test code = 2-16 5897546160) BUN (test code = 19 mg/dL 7-23 8459259426) GLUCOSE (test code = 98 mg/dL 70-110 8896635548) CREATININE (test code 0.94 mg/dL 0.6-1.25 = 1918876443) CALCIUM (test code = 8.7 mg/dL 8.6-10.6 8971882990) eGFR Calculation mL/min/1.73m2 (Non-) (test code = 3463660249) eGFR Calculation mL/min/1.73m2 () (test code = 9034800589) KARLENE (test code = KARLENE) Association of Glomerular Filtration Rate (GFR) and Staging of Kidney Disease*+ ---------+ --------+ +| GFR (mL/min/1.73 m2)?| With Kidney Damage?|?Without Kidney Damage+ -------+ ------+ ---------+|?>90?|?Stage one?|? Normal?+ --------+ -------+ +|?60-89?|?St age two?|? Decreased GFR? + -+ + ---+|?30-59?|?Stage three?|? Stage three? + -+ + ---+|?15-29?|?Stage four? |? Stage four?+ ------+ -----+ --------+|?<15 (or dialysis)?|?Stage five? |? Stage five?+ ------+ -----+ --------+*Each stage assumes the associated GFR level has been in effect for at least three months.?Stages 1 to 5, with or without kidney disease, indicate chronic kidney disease.Notes: Determination of stages one and two (with eGFR >59mL/min/1.73 m2) requires estimation of kidney damage for at least three months as defined by structural or functional abnormalities of the kidney, manifested by either:Pathological abnormalities or Markers of kidney damage (including abnormalities in the composition of the blood or urine or abnormalities in imaging tests). [facility] NorthwestMagnesium [id number] 06:41:00 Test Item Value Reference Range Interpretation Comments MAGNESIUM (test code = 6171682377) 2.2 mg/dL 1.7-2.4 Lab Interpretation (test code = Normal 66148-0) [facility] WITH [id number] 06:19:00 Test Item Value Reference Range Interpretation Comments WBC (test code = See_Comment H [Automated 9749-2) message] The system which generated this result transmitted reference range : 4.20 - 10.70 10*3/?L. The reference range was not used to interpret this result as normal/abnormal . RBC (test code = See_Comment [Automated 417-8) message] The system which generated this result transmitted reference range : 4.26 - 5.52 10*6/?L. The reference range was not used to interpret this result as normal/abnormal . HGB (test code = 13.6 g/dL 12.2-16.4 718-7) HCT (test code = 40.1 % 38.4-49.3 4544-3) MCV (test code = 87.7 fL 81.7-95.6 787-2) MCH (test code = 29.8 pg 26.1-32.7 785-6) MCHC (test code = 33.9 g/dL 31.2-35 786-4) RDW-SD (test code = 41.5 fL 38.5-51.6 23833-8) RDW-CV (test code = 13.0 % 12.1-15.4 788-0) PLT (test code = See_Comment [Automated 547-3) message] The system which generated this result transmitted reference range : 150 - 328 10*3/?L. The reference range was not used to interpret this result as normal/abnormal . MPV (test code = 10.3 fL 9.8-13 40415-1) NRBC/100 WBC (test See_Comment [Automat ed code = 3565613343) message] The system which generated this result transmitted reference range : 0.0 - 10.0 /100 WBCs. The reference range was not used to interpret this result as normal/abnormal . NRBC x10^3 (test code <0.01 See_Comment [Auto mated = 1850686593) message] The system which generated this result transmitted reference range : 10*3/?L. The reference range was not used to interpret this result as normal/abnormal . GRAN MAT (NEUT) % 77.7 % (test code = 770-8) IMM GRAN % (test code 0.50 % = 6508275128) LYMPH % (test code = 11.7 % 736-9) MONO % (test code = 9.9 % 5905-5) EOS % (test code = 0.1 % 713-8) BASO % (test code = 0.1 % 706-2) GRAN MAT x10^3(ANC) 13.06 10*3/uL 1.99-6.95 H (test code = 9691050900) IMM GRAN x10^3 (test 0.09 10*3/uL 0-0.06 H code = 9445692395) LYMPH x10^3 (test 1.96 10*3/uL 1.09-3.23 code = 731-0) MONO x10^3 (test code 1.66 10*3/uL 0.36-1.02 H = 742-7) EOS x10^3 (test code <0.03 0.06-0.53 L = 711-2) BASO x10^3 (test code <0.03 0.01-0.09 = 704-7) BANDS (test code = MARKED INCREASED A 0430677324) Lab Interpretation Abnormal (test code = 10880-2) [facility] BranchL[facility] Acid Whole [id number] 05:33:00 Test Item Value Reference Range Interpretation Comments LACTIC ACID (test code = 1.64 mmol/L 0.5-2.2 4549261214) Lab Interpretation (test code = Normal 68302-5) [facility] NorthwestL[facility] Acid Whole [id number] 01:31:00 Test Item Value Reference Range Interpretation Comments LACTIC ACID (test code = 2.80 mmol/L 0.5-2.2 H 9239732416) Lab Interpretation (test code = Abnormal 03423-7) [facility] NorthwestMYOGLOBIN URINE [id number] 01:15:00 Test Item Value Reference Range Interpretation Comments COLOR (test code = Yellow Colorless A 5242728957) U HGB (test code = 3+ Negative A 6754921195) U DEION (test code = Negative Negative 8701273554) KARLENE (test code = KARLENE) Test developed and characteristics determined by [facility] Laboratory Services. Lab Interpretation Abnormal (test code = 66179-8) [facility] NorthwestCREATINE [id number] 00:50:00 Test Item Value Reference Range Interpretation Comments CK (test code = 6497965959) 52757 U/L 33-194 H Lab Interpretation (test code = Abnormal 33281-1) [facility] NorthwestBasic Metabolic Panel (NA, K, CL, CO2, GLUCOSE, BUN, CREATININE, CA)2019-07-03 23:14:00 Test Item Value Reference Range Interpretation Comments NA (test code = 137 mmol/L 135-145 1689233470) K (test code = 5.0 mmol/L 3.5-5 5887536340) CL (test code = 102 mmol/L 98-108 1697124174) CO2 TOTAL (test code = 26 mmol/L 23-31 5770231351) AGAP (test code = 2-16 8650278131) BUN (test code = 24 mg/dL 7-23 H 1021325758) GLUCOSE (test code = 88 mg/dL 70-110 7313338234) CREATININE (test code = 1.34 mg/dL 0.6-1.25 H 5210811913) CALCIUM (test code = 8.6 mg/dL 8.6-10.6 6227406028) eGFR Calculation mL/min/1.73m2 (Non-) (test code = 6948280436) eGFR Calculation mL/min/1.73m2 () (test code = 0784430663) KARLENE (test code = KARLENE) Association of Glomerular Filtration Rate (GFR) and Staging of Kidney Disease*+ + + +| GFR (mL/min/1.73 m2)?| With Kidney Damage?|?Without Kidney Damage+ --------+ --------+ +|?>90?|?S tage one?|? Normal?+ ---------+ ---------+ +|?60-89? |?Stage two?|? Decreased GFR? + --+ --+ ------+|?30-59?|?Stage three?|? Stage three? + --+ --+ ------+|?15-29?|?Stage four? |? Stage four?+ -------+ -------+ +|?<15 (or dialysis)?|?Stage five? |? Stage five?+ -------+ -------+ +*Each stage assumes the associated GFR level has been in effect for at least three months.?Stages 1 to 5, with or without kidney disease, indicate chronic kidney disease.Notes: Determination of stages one and two (with eGFR >59mL/min/1.73 m2) requires estimation of kidney damage for at least three months as defined by structural or functional abnormalities of the kidney, manifested by either:Pathological abnormalities or Markers of kidney damage (including abnormalities in the composition of the blood or urine or abnormalities in imaging tests). Lab Interpretation Abnormal (test code = 66563-4) [facility] NorthwestLactic Acid Whole [id number] 22:39:00 Test Item Value Reference Range Interpretation Comments LACTIC ACID (test code = 2.87 mmol/L 0.5-2.2 H 3379212538) Lab Interpretation (test code = Abnormal 21227-2) [facility] NorthwestDRUG PANEL 2 [id number] 20:58:00 Test Item Value Reference Range Interpretation Comments AMPHET (test code = Presumptive Positive Negative A 0393826454) DILLAN U (test code = Negative Negative 4092786394) BENZO U (test code = Presumptive Positive Negative A 8407277417) Cocaine Metabolite (test Presumptive Positive Negative A code = 0899859165) METHADONE (test code = Negative Negative 4437017079) OPIATES (test code = Presumptive Positive Negative A 5561427768) PCP (test code = Negative Negative 7382891173) THC (test code = Presumptive Positive Negative A 2288821215) KARLENE (test code = KARLENE) Urine Drug Cutoff RangesCocaine:? 150 ng/mLBenzodiazepines: ? 200 ng/mLMethadone:? 300 ng/mLAmphetamine:? 1,000 ng/mLOpiates:? 300 ng/mLCannabinoids:?50 ng/mLPhencyclidine:? 25 ng/mLBarbiturates:?20 0 ng/mLThe results are to be used only for medical (i.e., treatment) purposes. Unconfirmed screening results must not be used for non-medical purposes (e.g., employment testing, legal testing). Lab Interpretation (test Abnormal code = 29119-8) [facility] NorthwestXR CHEST 1 [id number] 20:31:05 Left lower lung opacity and trace pleural effusion likely due to underlyingconsolidative process. Given patient's history differential diagnosisincludes asymmetric edema, aspiration, and septic embolism. Odette Land MD., have reviewed this study and agree with the abovereport.XR CHEST 1 VW HISTORY: 23 years-old; Male; hypoxia COMPARISON: Chest x-ray 09/09/2012 FINDINGS: Lungs are underinflated mick edilberto to vascular crowding. Left lung opacitywith trace left pleural effusion likely due to consolidative process. Thereis no?pneumothorax. The cardiomediastinal silhouette is normal. No acute osseous abnormality. [facility], Radiant Results Inft User - 07/03/2019 3:33 PM CDTXR CHEST 1 VWHISTORY: 23 years-old; Male; hypoxia COMPARISON: Chest x-ray 09/09/2012FINDINGS:Lungs are underinflated leaning to vascular crowding. Left lung opacitywith trace left pleural effusion likely due to consolidative process. Thereis no pneumothorax.The cardiomediastinal silhouette is normal.No acute osseous abnormality.IMPRESSIONLeft lower lung opacity and trace pleural effusion likely due to underlyingconsolidative process.Given patient's history differential diagnosisincludes asymmetric edema, aspiration, and septic embolism.Rosina Land MD., have reviewed this study and agree with the abovereport.[facility] NorthwestCT HEAD WO [id number] 19:36:[address] examination of the brain. Dontrell Land MD., have reviewed this study and agree with the abovereport.* * * * * * * * ORIGINAL REPORT * * * * * * * *CT HEAD WO CONTRAST HISTORY: Altered mental status (AMS), unclear cause, suspected drugoverdose. COMPARISON: 09/09/2012. TECHNIQUE:Noncontrast CT scan of the head with coronal and sagittalreformats was performed. FINDINGS: The ventricles and cerebral sulci are normal in caliber and configuration.No hydrocephalus, midline shift or pathological extra-axial fluidcollection is present. The basal cisterns are unremarkable. There is noacute intracranial hemorrhage or significant mass effect. Noparenchymal attenuation abnormality. Thegray-white matter differentiationis preserved. The mastoid air cells and paranasal air sinuses are clear. The calvariumand central skull base are unremarkable. [facility], Radiant Results Inft User - 07/03/2019 2:38 PM CDT* * * * * * * * ORIGINAL REPORT * * * * * * * *CT HEAD WO CONTRASTHISTORY: Altered mental status (AMS), unclear cause, suspected drugoverdose.COMPARISON: 09/09/2012.TECHNIQUE: NoncontrastCT scan of the head with coronal and sagittalreformats was performed.FINDINGS:The ventricles and cerebral sulci are normal in caliber and configuration.No hydrocephalus, midline shift or pathological extra-axial fluidcollection is present. The basal cisterns are unremarkable.There is no acute intracranial hemorrhage or significant mass effect. Noparenchymal attenuation abnormality. The webster-white matter differentiationis preserved.The mastoid air cells and paranasal air sinuses are clear. The calvariumand central skull base are unremarkable.IMPRESSIONUnremarkable CT examination of the brain.I, Julissa Sigala MD., have reviewed this study and agree with the abovereport. [facility]Ac[facility] Arterial Blood Gas.2019-07-03 17:47:00 Test Item Value Reference Range Interpretation Comments PH (test code = 2) 7.35-7.45 L PCO2 (test code = See_Comment [Automate d message] 7781997339) The system [employer] generated this result transmitted ref erence range: 35 - 45 mmHg. The reference r kalyn was not used to interpret this result as normal/abnor mal. PO2 (test code = See_Comment L [Automated message] 0827242803) The system [employer] generated this result transmitted ref erence range: 80 - 100 mmHg. The reference r kalyn was not used to interpret this result as normal/abnor mal. HCO3 (test code = See_Comment L [Automate d message] 1745035793) The system [employer] generated this result transmitted ref erence range: 22 - 26 mEq/L. The reference r kalyn was not used to interpret this result as normal/abnor mal. BE (test code = See_Comment L [Automated message] 8394841336) The system [employer] generated this result transmitted ref erence range: -3.0 - 3 .0 mEq/L. The refe rence range was not u sed to interpret this result as normal/abnor mal. Lab Interpretation (test Abnormal code = 76084-9) [facility] NorthwestPOTASSIUM [id number] 16:53:00 Test Item Value Reference Range Interpretation Comments K (test code = 1173230872) 6.2 mmol/L 3.5-5 HH S light hemolysis Lab Interpretation (test Abnormal code = 29031-8) [facility] NorthwestCREATINE [id number] 16:35:00 Test Item Value Reference Range Interpretation Comments CK (test code = 4995025473) 4549 U/L 33-194 H Slight hemolysis Lab Interpretation (test Abnormal code = 92763-2) [facility] NorthwestCOMP. METABOLIC PANEL (47939)2019-07-03 16:21:00 Test Item Value Reference Range Interpretation Comments NA (test code = 140 mmol/L 135-145 4285919819) K (test code = 6.5 mmol/L 3.5-5 HH Slight 6131974952) hemolysis CL (test code = 104 mmol/L 98-108 4079724016) CO2 TOTAL (test code 26 mmol/L 23-31 = 5966896720) AGAP (test code = 2-16 5999588534) BUN (test code = 25 mg/dL 7-23 H Slight 3205100221) hemolysis GLUCOSE (test code = 81 mg/dL 70-110 7664460890) CREATININE (test code 1.84 mg/dL 0.6-1.25 H = 8756424118) TOTAL BILI (test code 0.6 mg/dL 0.1-1.1 = 6907731671) CALCIUM (test code = 8.2 mg/dL 8.6-10.6 L 9829012508) T PROTEIN (test code 7.1 g/dL 6.3-8.2 = 8295730811) ALBUMIN (test code = 3.8 g/dL 3.5-5 2532144484) ALK PHOS (test code = 57 U/L 34-122 Slight 9915178331) hemolysis ALT(SGPT) (test code 41 U/L 9-51 Slight = 0547773944) hemolysis AST(SGOT) (test code 93 U/L 13-40 H Slight = 3323059085) hemolysis eGFR Calculation mL/min/1.73m2 (Non-) (test code = 7633078231) eGFR Calculation mL/min/1.73m2 () (test code = 2376158424) KARLENE (test code = KARLENE) Association of Glomerular Filtration Rate (GFR) and Staging of Kidney Disease*+ +----- +-- ----+| GFR (mL/min/1.73 m2)?| With Kidney Damage?|?Without Kidney Damage+ +------- +---- --+|?>90?|?Stage one?|? Normal?+ +------ +--- ---+|?60-89?|?Stage two?|? Decreased GFR? + -----+ --------+ +|?3 0-59?|?Stage three?|? Stage three? + -----+ --------+ +|?1 5-29?|?Stage four? |? Stage four?+ +-------- +----- -+|?<15 (or dialysis)?|?Stage five? |? Stage five?+ +-------- +----- -+*Each stage assumes the associated GFR level has been in effect for at least three months.?Stages 1 to 5, with or without kidney disease, indicate chronic kidney disease.Notes: Determination of stages one and two (with eGFR >59mL/min/1.73 m2) requires estimation of kidney damage for at least three months as defined by structural or functional abnormalities of the kidney, manifested by either:Pathological abnormalities or Markers of kidney damage (including abnormalities in the composition of the blood or urine or abnormalities in imaging tests). Lab Interpretation Abnormal (test code = 91117-7) [facility] NorthwestETHANOL2019-08-05 16:14:00 Test Item Value Reference Range Interpretation Comments ALCOHOL (test code = <10 mg/dL 1949515560) KARLENE (test code = Toxic Greater than or KARLENE) equal to 80 mg/dL.NOTE: Whole blood values are approximately 10% to 15% lower than serum and plasma. [facility] NorthwestACETAMINOPHEN2019-08-05 16:14:00 Test Item Value Reference Range Interpretation Comments ACETAMINOP (test code = <10.0 10-30 L 8426620289) KARLENE (test code = KARLENE) Toxic: Greater than 200 ug/mL @ 4 hour post ingestion or greater than 50 ug/mL @ 12 hour post ingestion Lab Interpretation (test Abnormal code = 22142-6) [facility] NorthwestSALICYLATE2019-08-05 16:14:00 Test Item Value Reference Range Interpretation Comments SALICYLATE (test code <10 mg/L = 9008817188) KARLENE (test code = KARLENE) Therapeutic Range:? Analgesic and Antipyretic Use? 20-100 mg/L? Anti-Inflammatory Use? 100-250 mg/LToxic Range:? Greater than 300 mg/L [facility] NorthwestAC ABG + LACTIC [id number] 15:37:00 Test Item Value Reference Range Interpretation Comments PH (test code = 2) 7.35-7.45 L PCO2 (test code = See_Comment H [Automate d 1808180710) message] The sy stem which generated this result transmitted reference range : 35 - 45 mmHg. The reference range was not used to interpret this result as normal/abnormal . PO2 (test code = See_Comment H [Automated 7191186973) message] The sy stem which generated this result transmitted reference range : 80 - 100 mmHg. The reference range was not used to interpret this result as normal/abnormal . HCO3 (test code = See_Comment L [Automate d 4011945243) message] The sy stem which generated this result transmitted reference range : 22 - 26 mEq/L. The reference range was not used to interpret this result as normal/abnormal . BE (test code = See_Comment L [Automated 1321724508) message] The sy stem which generated this result transmitted reference range : -3.0 - 3.0 mEq/ L. The reference r kalyn was not used to interpret this result as normal/abnormal . LACTIC ACID (test code 2.57 mmol/L 0.5-2.2 H = 1866255731) Lab Interpretation Abnormal (test code = 07700-6) [facility] NorthwestCBC WITH [id number] 15:18:00 Test Item Value Reference Range Interpretation Comments WBC (test code = See_Comment H [Automated 6690-2) message] The system which generated this result transmitted reference range : 4.20 - 10.70 10*3/?L. The reference range was not used to interpret this result as normal/abnormal . RBC (test code = See_Comment [Automated 789-8) message] The system which generated this result transmitted reference range : 4.26 - 5.52 10*6/?L. The reference range was not used to interpret this result as normal/abnormal . HGB (test code = 16.1 g/dL 12.2-16.4 718-7) HCT (test code = 51.2 % 38.4-49.3 H 4544-3) MCV (test code = 93.1 fL 81.7-95.6 787-2) MCH (test code = 29.3 pg 26.1-32.7 785-6) MCHC (test code = 31.4 g/dL 31.2-35 786-4) RDW-SD (test code = 44.5 fL 38.5-51.6 19122-8) RDW-CV (test code = 13.0 % 12.1-15.4 788-0) PLT (test code = See_Comment H [Automated 777-3) message] The system which generated this result transmitted reference range : 150 - 328 10*3/?L. The reference range was not used to interpret this result as normal/abnormal . MPV (test code = 10.5 fL 9.8-13 64256-8) NRBC/100 WBC (test See_Comment [Automat ed code = 7254792782) message] The system which generated this result transmitted reference range : 0.0 - 10.0 /100 WBCs. The reference range was not used to interpret this result as normal/abnormal . NRBC x10^3 (test code <0.01 See_Comment [Auto mated = [id number]) message] The system which generated this result transmitted reference range : 10*3/?L. The reference range was not used to interpret this result as normal/abnormal . GRAN MAT (NEUT) % 78.4 % (test code = 770-8) IMM GRAN % (test code 2.00 % = 6056368252) LYMPH % (test code = 5.2 % 736-9) MONO % (test code = 14.1 % 5905-5) EOS % (test code = 0.0 % 713-8) BASO % (test code = 0.3 % 706-2) GRAN MAT x10^3(ANC) 18.35 10*3/uL 1.99-6.95 H (test code = 7667320470) IMM GRAN x10^3 (test 0.47 10*3/uL 0-0.06 H code = 5449124412) LYMPH x10^3 (test 1.21 10*3/uL 1.09-3.23 code = 731-0) MONO x10^3 (test code 3.31 10*3/uL 0.36-1.02 H = 742-7) EOS x10^3 (test code <0.03 0.06-0.53 L = 711-2) BASO x10^3 (test code 0.08 10*3/uL 0.01-0.09 = 704-7) BANDS (test code = MARKED INCREASED A [id number]) TOXIC CHANGES (test Present A code = 803-7) Lab Interpretation Abnormal (test code = 43410-8) [facility]"
[2022-11-30] MEDS ORDERED: dexAMETHasone 10 MG/ML VIAL ONE (10:02)
--- NOTE | 2022-11-30 10:52 | EDPHYS ---
Physician Documentation [facility] Name: Nani Fernando Age: 27 yrs Sex: Male : 1995 Arrival Date: 11/30/2022 Time: 09:27 Bed IW3 Private MD: ED Physician Pura Reeves HPI: 11/30 10:49 This 27 yrs old Male presents to ER via Ambulatory with complaints of Allergic jmm Reaction, Rash. 10:49 The patient presents with rash. Onset: The symptoms/episode began/occurred gradually, 1 jmm week(s) ago. This is a 27-year-old male with no chronic medical conditions presents emerged department with complaints of diffuse hives began approximately 6 days ago. Patient states he does take Benadryl for partial relief but the hives return after a few hours. Denies any shortness of breath, swelling sensation to his throat, fever, abdominal pain, diarrhea.. Historical: - Allergies: 09:58 Zithromax; ss - Home Meds: 09:58 None [Active]; ss - PMHx: 09:58 None; ss - PSHx: 09:58 None; ss - Immunization history:: Client reports having NOT received the Covid vaccine. - Social history:: Smoking status: Reported history of juuling and/or vaping. ROS: 10:49 Constitutional: Negative for fever, chills, and weight loss, Cardiovascular: Negative jmm for chest pain, palpitations, and edema, Respiratory: Negative for shortness of breath, cough, wheezing, and pleuritic chest pain. 10:49 Skin: Positive for rash. 10:49 All other systems are negative. Exam: 10:49 Constitutional: This is a well developed, well nourished patient who is awake, alert, jmm and in no acute distress. Head/Face: atraumatic. Eyes: EOMI, no conjunctival erythema appreciated ENT: Moist Mucus Membranes Neck: Trachea midline, Supple Chest/axilla: Normal chest wall appearance and motion. Cardiovascular: Regular rate and rhythm. No edema appreciated Respiratory: Normal respirations, no respiratory distress appreciated Abdomen/GI: Non distended Back: Normal ROM 10:49 MS/ Extremity: Moves all extremities, no obvious deformities appreciated, no edema noted to the lower extremities Neuro: Awake and alert Psych: Behavior is normal, Mood is normal, Patient is cooperative and pleasant 10:49 ENT: No pharyngeal edema appreciated. 10:49 Skin: urticaria. Vital Signs: 09:56 BP 127 / 75; Pulse 64; Resp 14; Temp 98.2(TE); Pulse Ox 100% on R/A; Weight 83.91 kg; ss Height 5 ft. 2 in. (157.48 cm); Pain 0/10; 09:56 Body Mass Index 33.84 (83.91 kg, 157.48 cm) ss MDM: 09:46 Patient medically screened. [facility] 10:50 Data reviewed: vital signs, nurses notes. Counseling: I had a detailed discussion with shyam the patient and/or guardian regarding: the historical points, exam findings, and any diagnostic results supporting the discharge/admit diagnosis, the need for outpatient follow up, to return to the emergency department if symptoms worsen or persist or if there are any questions or concerns that arise at home. ED course: Patient is alert nontoxic in appearance in the ED. I do not currently suspect anaphylaxis. Patient advised follow-up PCP and otherwise given strict return precautions. Patient understood agrees plan of care.. Administered Medications: 10:15 Drug: Decadron (dexamethasone) 10 mg Route: IM; Site: right deltoid; ss 11:00 Follow up: Response: No adverse reaction Disposition: 18:37 STAFF ATTESTATION STATEMENT: I was immediately available onsite in the emergency sd2 department for consultation in the care of this patient. I did not see or examine this patient. Pura Reeves MD. Disposition Summary: 11/30/22 10:52 Discharge Ordered Location: Home [facility] Condition: Stable [facility] Diagnosis - Rash and other nonspecific skin eruption [facility] Followup: [facility] - With: Private Physician - When: 2 - 3 days - Reason: Recheck today's complaints, Continuance of care, Re-evaluation by your physician Discharge Instructions: - Discharge Summary Sheet [facility] - Rash, Adult [facility] Forms: - Medication Reconciliation Form [facility] - Thank You Letter [facility] - Antibiotic Education [facility] - Prescription Opioid Use [facility] Prescriptions: - Hydroxyzine HCl 25 mg Oral Tablet - take 1 tablet by ORAL route every 6 hours As needed; 30 tablet; Refills: 0, [facility] Product Selection Permitted - Prednisone 20 mg Oral Tablet - take 3 tablets by ORAL route once daily for 5 days; 15 tablet; Refills: 0, jmm Product Selection Permitted Signatures: Colin Ac PA PA jmm Smirch, Shelby, YAZAN RN ss Pura Reeves MD MD sd2
--- NOTE | 2022-11-30 10:52 | ER ---
Nurse's Notes [facility] Name: Nani Fernando Age: 27 yrs Sex: Male : 1995 Arrival Date: 11/30/2022 Time: 09:27 Bed IW3 Private MD: Diagnosis: Rash and other nonspecific skin eruption Presentation: 11/30 09:56 Chief complaint: Patient states: "I've been breaking out in hives for five days now. If ss I don't take Benadryl, they just keep coming back and the people at the rehab wanted me to come get checked out.". Coronavirus screen: Client denies travel out of the [place] in the last 14 days. Ebola Screen: Patient denies exposure to infectious person. Patient denies travel to an Ebola-affected area in the 21 days before illness onset. Onset: The symptoms/episode began/occurred 5 day(s) ago. Anaphylaxis evaluation, no signs or symptoms of anaphylaxis were noted. Initial Sepsis Screen: Does the patient meet any 2 criteria? No. Patient's initial sepsis screen is negative. Does the patient have a suspected source of infection? No. Patient's initial sepsis screen is negative. Risk Assessment: Do you want to hurt yourself or someone else? Patient reports no desire to harm self or others. Onset of symptoms was November 25, 2022. 09:56 Method Of Arrival: Ambulatory 09:56 Acuity: DONN 5 ss Historical: - Allergies: 09:58 Zithromax; ss - Home Meds: 09:58 None [Active]; ss - PMHx: 09:58 None; ss - PSHx: 09:58 None; ss - Immunization history:: Client reports having NOT received the Covid vaccine. - Social history:: Smoking status: Reported history of juuling and/or vaping. Screenin:56 [facility] ED Fall Risk Assessment (Adult) History of falling in the last 3 months, ss including since admission No falls in past 3 months (0 pts). Abuse screen: Denies threats or abuse. Denies injuries from another. Nutritional screening: No deficits noted. Tuberculosis screening: Never had TB. Assessment: 09:56 Reassessment: Pt has no complaints at this time. No rash noted. Pt states that he took ss Benadryl which helped with his hives. General: Appears in no apparent distress. comfortable, Behavior is calm, cooperative. Neuro: Level of Consciousness is awake, alert, obeys commands. Respiratory: Airway is patent Respiratory effort is even, unlabored, Respiratory pattern is regular, symmetrical. Derm: Skin is pink, warm \\T\\ dry. normal. Vital Signs: 09:56 BP 127 / 75; Pulse 64; Resp 14; Temp 98.2(TE); Pulse Ox 100% on R/A; Weight 83.91 kg; ss Height 5 ft. 2 in. (157.48 cm); Pain 0/10; 09:56 Body Mass Index 33.84 (83.91 kg, 157.48 cm) ED Course: 09:27 Patient arrived in ED. am2 09:29 Colin Ac PA is PHCP. latoya 09:29 Pura Reeves MD is Attending Physician. [facility] 09:56 Patient has correct armband on for positive identification. 09:58 Triage completed. 09:58 Arm band placed on right wrist. 10:19 Skylar Morejon, YAZAN is Primary Nurse. ss 11:12 No provider procedures requiring assistance completed. Patient did not have IV access ss during this emergency room visit. Administered Medications: 10:15 Drug: Decadron (dexamethasone) 10 mg Route: IM; Site: right deltoid; 11:00 Follow up: Response: No adverse reaction ss Medication: 09:56 VIS not applicable for this client. Outcome: 10:52 Discharge ordered by . [facility] 11:12 Discharged to home ambulatory. 11:12 Condition: good 11:12 Discharge instructions given to patient, Instructed on discharge instructions, follow up and referral plans. medication usage, Demonstrated understanding of instructions, follow-up care, medications, Prescriptions given X 2. 11:13 Patient left the ED. Signatures: Colin Ac PA PA jmm Smirch, Shelby, YAZAN RN Ana Longoria am2
[2022-11-30 11:43] VITALS: BP 127/75; TEMP 98.2; O2SAT 100
== END 2022-11-30 11:13 | disposition home or self-care (01) ==
LOC: ER 09:26
DX: R21 Rash and other nonspecific skin eruption (principal); Z88.1 Allergy status to other antibiotic agents
CPT/HCPCS: 96372; 99283; J1100